=== PATIENT | male | born 1990 | race Caucasian/White ===

== ENCOUNTER → 2019-08-25 | Outpatient (CLI) | payer MEDICAID | LOC: M OUTALCOH 08:11 | PROVIDERS: ATTEND Psychiatry & Neurology Addiction Medicine | DX: Z03.89 Encounter for observation for other suspected diseases and conditions ruled out (principal) ==

== ENCOUNTER 2019-09-04 15:58 | Outpatient (RCR) | payer MEDICAID | END 2019-09-23 | LOC: M OUTALCOH 15:58 | PROVIDERS: ATTEND Psychiatry & Neurology Addiction Medicine | DX: Z03.89 Encounter for observation for other suspected diseases and conditions ruled out (principal); Z72.0 Tobacco use ==

== ENCOUNTER 2023-08-12 22:00 | Emergency (ER) | payer MEDICAID, OTHER, SELFPAY ==
[~2023-08-12] VITALS: Ht 180.3 cm; Wt 86.8 kg
[2023-08-12 22:00] VITALS: BP 137/84; TEMP 99; O2SAT 98
[2023-08-12] MEDS ORDERED: SUBO4MIS SL (22:19)
== END 2023-08-13 00:42 | disposition left against medical advice (07) ==
LOC: M ED 22:00
DX: Z53.21 Procedure and treatment not carried out due to patient leaving prior to being seen by health care provider (principal)

== ENCOUNTER 2023-08-13 10:50 | Emergency (ER) | payer MEDICAID, OTHER ==
[~2023-08-13] VITALS: Ht 180.3 cm; Wt 84.7 kg
[~2023-08-13 10:50] MED LIST: SUBO4MIS SL
[2023-08-13 10:51] VITALS: TEMP 98.2
[2023-08-13] MEDS ORDERED: FLUORESCEIN OPHTH 1MG STRIP OS ONE (11:50)
[2023-08-13] MEDS ORDERED: PROPARACAINE 0.5% OPHTH SOL 15ML OS ONE (11:50)
[2023-08-13 12:34] VITALS: BP 127/79; O2SAT 95
== END 2023-08-13 12:35 | disposition home or self-care (01) ==
LOC: M ED 10:50
DX: T15.02XA Foreign body in cornea, left eye, initial encounter (principal); F17.210 Nicotine dependence, cigarettes, uncomplicated; Z79.891 Long term (current) use of opiate analgesic

== ENCOUNTER 2024-02-09 10:20 | Emergency (ER) | payer OTHER ==
[~2024-02-09] VITALS: Ht 180.3 cm; Wt 91.2 kg
[2024-02-09] MEDS ORDERED: ISOVUE-370 76% 100ML VIAL As Ordered ONE (10:56)
[2024-02-09] MEDS: BOOSTRIX VACCINE (TETANUS/DIPHTH/ACEL. PERTUSSIS) 0.5ML SYR IM.IMMUN ONE (11:29)
[2024-02-09] MEDS ORDERED: CEPH500T PO (11:51)
[2024-02-09 12:18] VITALS: BP 114/75; TEMP 98; O2SAT 99
== END 2024-02-09 12:22 | disposition home or self-care (01) ==
LOC: M ED 10:20
DX: S31.133A Puncture wound of abdominal wall without foreign body, right lower quadrant without penetration into peritoneal cavity, initial encounter (principal); W26.0XXA Contact with knife, initial encounter; F10.10 Alcohol abuse, uncomplicated; N28.1 Cyst of kidney, acquired; Z23 Encounter for immunization; Z79.899 Other long term (current) drug therapy; Z79.2 Long term (current) use of antibiotics; Y92.9 Unspecified place or not applicable; Y93.89 Activity, other specified; Y99.0 Civilian activity done for income or pay
CPT/HCPCS: 74177; 80047; 90471; 90715; 93041; 94760; 99284; Q9967